=== PATIENT | female | born 1980 | race Asian ===

== ENCOUNTER 2021-08-19 23:20 | Inpatient (IN) | payer BC, OTHER ==
[~2021-08-19] VITALS: Ht 152.4 cm; Wt 49.4 kg
[2021-08-20] MEDS ORDERED: IV NS 0.9% 1,000 ML BAG IV ONE
[2021-08-20 00:22] LABS: BASOPHILS % (AUTO) 0.7 % (0.0-2.0); EOSINOPHILS % (AUTO) 3.1 % (0.0-6.0); HEMATOCRIT 39 % (33-45); HEMOGLOBIN 12.8 g/dL (11.5-14.8); LYMPHOCYTES # (AUTO) 1.9 K/uL (0.8-4.8); LYMPHOCYTES % (AUTO) 44.8 % (20.0-44.0); MEAN CORPUSCULAR HGB CONC 33 g/dl (31.0-36.0); MEAN CORPUSCULAR VOLUME 81 fL (82-100); MONOCYTES # (AUTO) 0.6 K/uL (0.1-1.30); MONOCYTES % (AUTO) 14.8 % (2.0-12.0); NEUTROPHILS # (AUTO) 1.5 K/uL (1.8-8.9); NEUTROPHILS % (AUTO) 36.6 % (43.0-81.0); PLATELET COUNT (AUTO) 252 K/uL (150-450); RED BLOOD CELL COUNT(AUTO) 4.77 MIL/uL (4.0-5.2); WHITE BLOOD COUNT (AUTO) 4.2 K/uL (4.3-11.0)
[2021-08-20 01:19] LABS: CALCIUM, SERUM 9.3 mg/dL (8.5-10.1); CARBON DIOXIDE 28 mmol/L (21-32); CHLORIDE 103 mmol/L (98-107); CREATININE 0.6 mg/dL (0.6-1.3); GLUCOSE 143 mg/dL (74-106); POTASSIUM 3.8 mmol/L (3.5-5.1); SODIUM SERUM 138 mmol/L (136-145); UREA NITROGEN, BLOOD 21 mg/dL (7-18)
[2021-08-20] MEDS ORDERED: CT SWABBABLE VALVE TRANS SET 1 EA INFUS.SET MC ONE (01:25)
[2021-08-20] MEDS ORDERED: IV NS 0.9% 250 ML IV ONE (01:25)
[2021-08-20] MEDS ORDERED: IOHEXOL-350 100 ML VIAL IV ONE (01:25)
[2021-08-20 01:58] LABS: BILIRUBIN,URINE NEGATIVE (NEGATIVE); COLOR,URINE YELLOW (YELLOW); LEUKOCYTE ESTERASE ,URINE NEGATIVE (NEGATIVE); NITRITE, URINE NEGATIVE (NEGATIVE); PH,URINE 5.5 (5.0-8.0); PROTEIN,URINE NEGATIVE (NEGATIVE); UGLUCOSE NEGATIVE (NEGATIVE); UROBILINOGEN,URINE 0.2 EU/dL (0.2)
[2021-08-20] MEDS ORDERED: LORAZEPAM INJ 2 MG/ML VIAL IV ONE (03:30)
[2021-08-20] MEDS ORDERED: LORAZEPAM INJ 2 MG/ML VIAL ONE (03:45)
[2021-08-20] MEDS ORDERED: ONDANSETRON HCL/PF 4 MG/2 ML VIAL IVP PRN (04:00)
[2021-08-20] MEDS ORDERED: ACETAMINOPHEN 325 MG TABLET PO PRN (04:00)
[2021-08-20 04:58] VITALS: BP 118/71
[2021-08-20 05:00] VITALS: BP 118/71
[2021-08-20 08:25] VITALS: BP_SYST 124; BP_SYST 140; BP_DIAS 64; BP_DIAS 84
[2021-08-20] MEDS: METOPROLOL TARTRATE 50 MG TABLET PO SCH ×2 (10:26→21:00)
[2021-08-20 12:00] VITALS: BP 118/64
[2021-08-20] MEDS: METHIMAZOLE (5MG) 5 MG TABLET PO SCH (12:33)
[2021-08-20 16:12] VITALS: BP 116/68
[2021-08-20 20:00] VITALS: BP 121/75
[2021-08-21] VITALS: BP 125/73
[2021-08-21 04:00] VITALS: BP 117/68
[2021-08-21 05:49] LABS: BASOPHILS % (AUTO) 0.7 % (0.0-2.0); EOSINOPHILS % (AUTO) 3.3 % (0.0-6.0); HEMATOCRIT 40 % (33-45); HEMOGLOBIN 13.2 g/dL (11.5-14.8); LYMPHOCYTES # (AUTO) 1.9 K/uL (0.8-4.8); LYMPHOCYTES % (AUTO) 37.1 % (20.0-44.0); MEAN CORPUSCULAR HGB CONC 33 g/dl (31.0-36.0); MEAN CORPUSCULAR VOLUME 81 fL (82-100); MONOCYTES # (AUTO) 0.6 K/uL (0.1-1.30); MONOCYTES % (AUTO) 11.8 % (2.0-12.0); NEUTROPHILS # (AUTO) 2.4 K/uL (1.8-8.9); NEUTROPHILS % (AUTO) 47.1 % (43.0-81.0); PLATELET COUNT (AUTO) 249 K/uL (150-450); RED BLOOD CELL COUNT(AUTO) 4.88 MIL/uL (4.0-5.2); WHITE BLOOD COUNT (AUTO) 5.2 K/uL (4.3-11.0)
[2021-08-21 06:43] LABS: THYROID STIMULATING HORMONE < 0.007 uIU/mL (0.358-3.74)
[2021-08-21 08:10] VITALS: BP 120/74
[2021-08-21] MEDS: METHIMAZOLE (5MG) 5 MG TABLET PO SCH (08:26)
[2021-08-21] MEDS: METOPROLOL TARTRATE 50 MG TABLET PO SCH (08:27)
[2021-08-21] MEDS ORDERED: METOPROLOL SUCCINATE 50 MG TAB.SR.24H PO SCH (09:00)
[2021-08-21] MEDS ORDERED: METO50TA7 PO (09:15)
[2021-08-21] MEDS ORDERED: METH5TAB70 PO (09:15)
[2021-08-21] MEDS ORDERED: METOPROLOL SUCCINATE 50 MG TAB.SR.24H PO ONE (09:20)
[2021-08-21 09:29] VITALS: BP 120/74
[2021-08-21 09:59] LABS: CALCIUM, SERUM 9.7 mg/dL (8.5-10.1); CARBON DIOXIDE 24 mmol/L (21-32); CHLORIDE 107 mmol/L (98-107); CREATININE 0.5 mg/dL (0.6-1.3); GLUCOSE 107 mg/dL (74-106); MAGNESIUM 1.9 mg/dL (1.8-2.4); PHOSPHORUS 4.7 mg/dL (2.5-4.9); POTASSIUM 4.1 mmol/L (3.5-5.1); SODIUM SERUM 141 mmol/L (136-145); UREA NITROGEN, BLOOD 18 mg/dL (7-18)
[2021-08-22] MEDS ORDERED: METOPROLOL SUCCINATE 50 MG TAB.SR.24H PO SCH (09:00)
== END 2021-08-21 11:15 | disposition home or self-care (01) | DRG 645 ==
LOC: ER 23:27 → TELE 08-20 04:21 → MED 08-21 09:04
PROVIDERS: ADMIT Registered Nurse; ATTEND Registered Nurse
DX: E05.90 Thyrotoxicosis, unspecified without thyrotoxic crisis or storm (principal); R00.0 Tachycardia, unspecified; Z20.822 Contact with and (suspected) exposure to COVID-19
CPT/HCPCS: 36415; 71045-TC; 76536-TC; 80048-TC; 83735-TC; 83880; 84100-TC; 84439-TC; 84443-TC; 84484-TC; 84703-TC; 85025-TC; 85378-TC; 87081-TC; 93307-TC; C9803; G0378; J2060; J7030; J7050; Q9967

== ENCOUNTER 2021-09-19 10:27 | Outpatient (CLI) | payer BC, OTHER ==
[~2021-09-19 10:27] MED LIST: METH5TAB70 PO; METO50TA7 PO
[2021-09-19 11:11] LABS: BASOPHILS % (AUTO) 0.7 % (0.0-2.0); EOSINOPHILS % (AUTO) 1.9 % (0.0-6.0); HEMATOCRIT 40 % (33-45); HEMOGLOBIN 12.9 g/dL (11.5-14.8); LYMPHOCYTES # (AUTO) 1.2 K/uL (0.8-4.8); LYMPHOCYTES % (AUTO) 31.8 % (20.0-44.0); MEAN CORPUSCULAR HGB CONC 33 g/dl (31.0-36.0); MEAN CORPUSCULAR VOLUME 81 fL (82-100); MONOCYTES # (AUTO) 0.3 K/uL (0.1-1.30); MONOCYTES % (AUTO) 8.4 % (2.0-12.0); NEUTROPHILS # (AUTO) 2.2 K/uL (1.8-8.9); NEUTROPHILS % (AUTO) 57.2 % (43.0-81.0); PLATELET COUNT (AUTO) 244 K/uL (150-450); RED BLOOD CELL COUNT(AUTO) 4.87 MIL/uL (4.0-5.2); WHITE BLOOD COUNT (AUTO) 3.8 K/uL (4.3-11.0)
[2021-09-19 11:28] LABS: ALANINE AMINOTRANSFERASE 47 U/L (12-78); ALBUMIN 3.5 g/dL (3.4-5.0); ALKALINE PHOSPHATASE 134 U/L (46-116); ASPARTATE AMINOTRANSFERASE 21 U/L (15-37); BILIRUBIN,TOTAL 0.5 mg/dL (0.2-1.0); CALCIUM, SERUM 9.1 mg/dL (8.5-10.1); CARBON DIOXIDE 26 mmol/L (21-32); CHLORIDE 105 mmol/L (98-107); CREATININE 0.5 mg/dL (0.6-1.3); GLUCOSE 108 mg/dL (74-106); MAGNESIUM 2.1 mg/dL (1.8-2.4); POTASSIUM 4.2 mmol/L (3.5-5.1); SODIUM SERUM 136 mmol/L (136-145); TOTAL PROTEIN, SERUM 7.9 g/dL (6.4-8.2); UREA NITROGEN, BLOOD 14 mg/dL (7-18)
[2021-09-19 11:36] LABS: CHOLESTEROL 120 mg/dL (<200); HDL CHOLESTEROL 61 mg/dL (40-60); LDL 50 mg/dL (0-99); THYROID STIMULATING HORMONE < 0.007 uIU/mL (0.358-3.74); TRIGLYCERIDES 54 mg/dL (30-150)
== END 2021-09-19 23:59 | disposition home or self-care (01) ==
LOC: LAB 10:27
PROVIDERS: ATTEND Internal Medicine
DX: E05.90 Thyrotoxicosis, unspecified without thyrotoxic crisis or storm (principal)
CPT/HCPCS: 36415; 80053-TC; 80061-TC; 83735-TC; 84439-TC; 84443-TC; 84480; 85025-TC; 85652-TC; 86376; 86800

== ENCOUNTER 2021-10-10 09:34 | Outpatient (CLI) | payer BC, OTHER ==
[2021-10-10 11:22] LABS: BASOPHILS % (AUTO) 0.5 % (0.0-2.0); EOSINOPHILS % (AUTO) 4.8 % (0.0-6.0); HEMATOCRIT 42 % (33-45); HEMOGLOBIN 13.5 g/dL (11.5-14.8); LYMPHOCYTES # (AUTO) 1.4 K/uL (0.8-4.8); LYMPHOCYTES % (AUTO) 28.7 % (20.0-44.0); MEAN CORPUSCULAR HGB CONC 32 g/dl (31.0-36.0); MEAN CORPUSCULAR VOLUME 81 fL (82-100); MONOCYTES # (AUTO) 0.5 K/uL (0.1-1.30); MONOCYTES % (AUTO) 10.4 % (2.0-12.0); NEUTROPHILS # (AUTO) 2.7 K/uL (1.8-8.9); NEUTROPHILS % (AUTO) 55.6 % (43.0-81.0); PLATELET COUNT (AUTO) 239 K/uL (150-450); RED BLOOD CELL COUNT(AUTO) 5.15 MIL/uL (4.0-5.2); WHITE BLOOD COUNT (AUTO) 4.9 K/uL (4.3-11.0)
[2021-10-10 12:21] LABS: ALANINE AMINOTRANSFERASE 103 U/L (12-78); ALBUMIN 3.5 g/dL (3.4-5.0); ALKALINE PHOSPHATASE 148 U/L (46-116); ASPARTATE AMINOTRANSFERASE 35 U/L (15-37); BILIRUBIN,TOTAL 0.5 mg/dL (0.2-1.0); CARBON DIOXIDE 26 mmol/L (21-32); CHLORIDE 106 mmol/L (98-107); CREATININE 0.6 mg/dL (0.6-1.3); GLUCOSE 99 mg/dL (74-106); MAGNESIUM 1.9 mg/dL (1.8-2.4); POTASSIUM 3.9 mmol/L (3.5-5.1); SODIUM SERUM 139 mmol/L (136-145); TOTAL PROTEIN, SERUM 7.6 g/dL (6.4-8.2); UREA NITROGEN, BLOOD 14 mg/dL (7-18)
[2021-10-10 14:42] LABS: FREE T4 (FREE THYROXINE) 1.64 ng/dL (0.76-1.46); THYROID STIMULATING HORMONE < 0.007 uIU/mL (0.358-3.74)
== END 2021-10-10 23:59 | disposition home or self-care (01) ==
LOC: LAB 09:34
PROVIDERS: ATTEND Internal Medicine
DX: E05.90 Thyrotoxicosis, unspecified without thyrotoxic crisis or storm (principal)
CPT/HCPCS: 36415; 80053-TC; 83735-TC; 84439-TC; 84443-TC; 84480; 85025-TC; 85652-TC